=== PATIENT | female | born 1940 | race Caucasian/White ===

== ENCOUNTER 2016-06-14 20:40 | Inpatient (IN) ==
[2016-06-14 21:09] LABS: Hematocrit 43.7 % (35.3-44.9); Hemoglobin 14.4 g/dL (11.5-15.4); Mean Corpuscular Hemoglobin 30.6 pg (28.0-33.3); Mean Platelet Volume 11.7 fL (9.4-12.4); Platelet Count 127 K/mcL (140-400); Red Cell Distribution Width 15.3 % (11.5-14.5)
--- NOTE | 2016-06-14 21:13 | Emergency Department Note ---
Disposition Clinical Impression: Pneumonia Respiratory failure Qualifiers: Chronicity: acute on chronic Respiratory failure complication: hypoxia and hypercapnia Qualified Code(s): J96.21 - Acute and chronic respiratory failure with hypoxia Disposition: Admitted As Inpatient Condition: Critical Altered Mental Status HPI - General Chief Complaint: ED Overdose Stated Complaint: unresponsive Time Seen by Provider: 06/14/16 20:52 Source: EMS Limitations: altered mental status Nursing Notes Reviewed: Yes Vital Signs Reviewed: Yes - History of Present Illness HPI Narrative: 75-year-old female with a history of head and neck cancer status post chemotherapy and radiation who is fed through a feeding tube presents to the emergency department after being found altered at home. She lives with her daughter and her daughter reports the patient sleeping all day and being very tired. Just prior to arrival she went to wake her up and the patient was unresponsive. She has had pneumonia and what sounds like aspiration the past. She strictly fed through a feeding tube but does drink coffee daily. I spoke with the daughter and her son Anthony who is the POA who states the patient never wanted to be intubated or put on a ventilator. They are unsure about CPR. Patient is responding to pain but does not open her eyes or say any words. Initially she is borderline hypotensive with a systolic blood pressure around 100. Her oxygen saturation was 83% but improved to about 90% with a nonrebreather. She has coarse breath sounds bilaterally. Anthony, her POA is going to bring in her paperwork regarding CODE STATUS but they are adamant she does not want to be intubated. - Related Data Home Medications Medication Instructions Recorded Confirmed Albuterol Sulfate [Proair Hfa] 1 puff IH 4-6XD PRN 06/15/16 06/15/16 Alprazolam [Xanax 0.5 MG Tablet] 0.5 mg PO TID PRN 06/15/16 06/15/16 Aspirin [Lo-Dose Aspirin EC] 81 mg GTUBE DAILY 06/15/16 06/15/16 Atorvastatin [Lipitor] 10 mg PO HS 06/15/16 06/15/16 Budesonide/Formoterol 160/4.5 2 puff IH BIDR 06/15/16 06/15/16 [Symbicort 160/4.5] Gabapentin 250 mg GTUBE TID 06/15/16 06/15/16 Ipratropium/Albuterol Neb [Duoneb] 3 ml IH Q6HR 06/15/16 06/15/16 Oxycodone HCl/Acetaminophen 1 each PO Q8HR 06/15/16 06/15/16 [Percocet 7.5-325 mg Tablet] Allergies Allergy/AdvReac Type Severity Reaction Status Date / Time No Known Allergies Allergy Verified 06/14/16 21:04 Limitations: ROS unobtainable due to patients medical condition Past Medical History - Past Medical History Medical history: Reports: cancer - Social History Smoking Status: Unknown if ever smoked Physical Exam General: Cachectic, unresponsive chronically ill-appearing patient Cardiovascular: Regular rate and rhythm. S1, S2. No murmurs, rubs or gallops. Respiratory: Coarse breath sounds bilaterally. Breathing spontaneously with a respiratory rate around 15. No wheezing. Abdomen: Soft, no rebound or rigidity. As a feeding tube in place without signs of infection or leak Eyes: Pupils are 3 mm bilaterally and reactive to light. She has a corneal reflex bilaterally. HENT: No signs of head injury. No emesis in the mouth or throat. Neuro: No facial asymmetry. Withdraws to pain in 4 extremities. Eyes do not open to pain. She says no words and makes no sounds. GCS 6 Musculoskeletal: No lower extremity edema or signs of injury. Skin: No lesions. No diaphoresis. Normal turgor. Normal color - General Limitations: altered mental status General appearance: lethargic Course Course Narrative: Presents with altered mental status. Initial GCS 6. She was hypoxic in the 80s and borderline hypotensive. Her blood glucose was in the 70s and she was given a liter of D5 half normal. Her EKG showed no acute ischemic changes. She had coarse breath sounds and some respiratory distress on exam. Chest x- ray shows right hilar pneumonia. My concern was aspiration because she is chronically tube fed, not supposed to have PO but she does drink coffee daily. Oxygenation improved with nonrebreather to around 90% but then began going back down into the mid 80s. We placed BiPAP and her O2 saturation has been stable around 92%. She has good respirations. Family are all at adamant and agreed that she would never want intubation or to be on a ventilator. As far as CPR goes I told them CPR would likely not be beneficial if she wanted be intubated but they are trying to find her CODE STATUS paperwork. Labs reveal a leukopenia , mild renal insufficiency and hypoglycemia. We started her on Levaquin and Zosyn. We will admit her on the BiPAP. I discussed with the on-call hospitalist, Dr. Velázquez who accepts for admission, no further orders at this time Vital Signs Temperature 0 F L 06/14/16 20:41 Pulse Rate 99 06/14/16 20:41 Respiratory Rate 24 06/14/16 20:41 Blood Pressure 98/64 06/14/16 20:41 O2 Sat by Pulse Oximetry 86 L 06/14/16 20:41 Temperature 97.7 F 06/15/16 03:49 Pulse Rate 90 06/15/16 03:49 Respiratory Rate 22 06/15/16 05:08 Blood Pressure 97/61 06/15/16 03:49 O2 Sat by Pulse Oximetry 96 06/15/16 05:08 Oxygen Delivery Oxygen Delivery Bipap Altered Mental Status - Lab Data Result diagrams: 06/15/16 04:11 06/15/16 04:11 Lab Results 06/14/16 06/14/16 06/14/16 Range/Units 20:43 20:58 20:58 WBC 2.1 L (4.3-11.1) K/mcL RBC 4.70 (3.82-4.97) M/mcL Hgb 14.4 (11.5-15.4) g/dL Hct 43.7 (35.3-44.9) % MCV 93.0 (83.0-100.0) fL MCH 30.6 (28.0-33.3) pg MCHC 33.0 (31.6-35.5) g/dL RDW 15.3 H (11.5-14.5) % Plt Count 127 L (140-400) K/mcL MPV 11.7 (9.4-12.4) fL Seg Neutrophils % 6.0 % Band Neutrophils % 4.0 (0-4) % Lymphocytes % 60.0 % Monocytes % 22.0 % Metamyelocytes % 4.0 H (0) % Myelocytes % 4.0 H (0) % Neutrophils # 0.2 L (1.6-8.9) K/mcL Lymphocytes # 1.3 (0.6-4.6) K/mcL Monocytes # 0.5 (0.0-1.3) K/mcL ABG pH (7.32-7.45) pH Units ABG pCO2 (35-45) mmHg ABG pO2 (85-104) mmHg ABG HCO3 (21-27) mEQ/L ABG Total CO2 (20-26) mEq/L ABG O2 Saturation (95-98) % ABG Base Excess (-2.0 to 3.0) mEq/L Blood Gas Modality Inspired O2 % Sodium 139 (136-145) mEq/L Potassium 4.0 (3.5-4.5) mEq/L Chloride 101 (98-109) mEq/L Carbon Dioxide 26 (19-29) mEq/L BUN 25 H (7-20) mg/dL Creatinine 1.53 H (0.57-1.11) mg/dL Est GFR ( Amer) 40 L (> 60) Est GFR (Non-Af Amer) 33 L (> 60) BUN/Creatinine Ratio 16 (6-26) Glucose 61 L (70-99) mg/dL POC Glucose 70 (58-89) Calculated Osmolality 290 (280-300) Lactic Acid (0.5-2.2) mmol/L Calcium 9.7 (8.6-10.8) mg/dL Total Bilirubin 0.6 (0.2-1.2) mg/dL Direct Bilirubin 0.2 (0.0-0.5) mg/dL Indirect Bilirubin 0.4 (0.0-1.2) mg/dL AST 45 H (5-34) Units/L ALT 35 (0-55) Units/L Alkaline Phosphatase 51 (38-126) Units/L Serum Total Protein 6.6 (6.0-8.3) g/dL Albumin 3.2 L (3.5-5.0) g/dL Globulin 3.4 (2.4-3.5) g/dL Albumin/Globulin Ratio 0.9 L (1.1-2.2) Urine Color (Yellow) Urine Clarity (Clear) Urine pH (5.0-8.0) pH Units Ur Specific Council (1.010-1.025) Urine Protein (Neg-Trace) mg/dL Urine Glucose (UA) (Normal) mg/dL Urine Ketones (Negative) mg/dL Urine Blood (Negative) Urine Nitrite (Negative) Urine Bilirubin (Negative) Urine Urobilinogen (Normal) mg/dL Ur Leukocyte Esterase (Negative) Urine Microscopic RBC (0-3) per hpf Urine Microscopic WBC (0-3) per hpf Ur Squamous Epith Cells (None-Few) per lpf Urine Bacteria (None-Few) per hpf Hyaline Casts (None-Few) per lpf Ur Culture Indicated? (NO) Urine Opiates Screen (Apzxai=909) ng/mL Ur Barbiturates Screen (Yysoqk=608) ng/mL Ur Phencyclidine Scrn (Cutoff=25) ng/mL Ur Amphetamines Screen (Qcxinb=5854) ng/mL U Benzodiazepines Scrn (Eurmjr=884) ng/mL Urine Cocaine Screen (Cutoff= 300) ng/mL U Marijuana (THC) Screen (Cutoff = 50) ng/mL 06/14/16 06/14/16 06/14/16 Range/Units 20:58 21:56 22:18 WBC (4.3-11.1) K/mcL RBC (3.82-4.97) M/mcL Hgb (11.5-15.4) g/dL Hct (35.3-44.9) % MCV (83.0-100.0) fL MCH (28.0-33.3) pg MCHC (31.6-35.5) g/dL RDW (11.5-14.5) % Plt Count (140-400) K/mcL MPV (9.4-12.4) fL Seg Neutrophils % % Band Neutrophils % (0-4) % Lymphocytes % % Monocytes % % Metamyelocytes % (0) % Myelocytes % (0) % Neutrophils # (1.6-8.9) K/mcL Lymphocytes # (0.6-4.6) K/mcL Monocytes # (0.0-1.3) K/mcL ABG pH 7.39 (7.32-7.45) pH Units ABG pCO2 53 H (35-45) mmHg ABG pO2 53 L (85-104) mmHg ABG HCO3 32.1 H (21-27) mEQ/L ABG Total CO2 33.7 H (20-26) mEq/L ABG O2 Saturation 87 L (95-98) % ABG Base Excess 5.7 H (-2.0 to 3.0) mEq/L Blood Gas Modality NRB Inspired O2 100 % Sodium (136-145) mEq/L Potassium (3.5-4.5) mEq/L Chloride (98-109) mEq/L Carbon Dioxide (19-29) mEq/L BUN (7-20) mg/dL Creatinine (0.57-1.11) mg/dL Est GFR ( Amer) (> 60) Est GFR (Non-Af Amer) (> 60) BUN/Creatinine Ratio (6-26) Glucose (70-99) mg/dL POC Glucose 101 H (58-89) Calculated Osmolality (280-300) Lactic Acid 2.9 H (0.5-2.2) mmol/L Calcium (8.6-10.8) mg/dL Total Bilirubin (0.2-1.2) mg/dL Direct Bilirubin (0.0-0.5) mg/dL Indirect Bilirubin (0.0-1.2) mg/dL AST (5-34) Units/L ALT (0-55) Units/L Alkaline Phosphatase (38-126) Units/L Serum Total Protein (6.0-8.3) g/dL Albumin (3.5-5.0) g/dL Globulin (2.4-3.5) g/dL Albumin/Globulin Ratio (1.1-2.2) Urine Color (Yellow) Urine Clarity (Clear) Urine pH (5.0-8.0) pH Units Ur Specific Council (1.010-1.025) Urine Protein (Neg-Trace) mg/dL Urine Glucose (UA) (Normal) mg/dL Urine Ketones (Negative) mg/dL Urine Blood (Negative) Urine Nitrite (Negative) Urine Bilirubin (Negative) Urine Urobilinogen (Normal) mg/dL Ur Leukocyte Esterase (Negative) Urine Microscopic RBC (0-3) per hpf Urine Microscopic WBC (0-3) per hpf Ur Squamous Epith Cells (None-Few) per lpf Urine Bacteria (None-Few) per hpf Hyaline Casts (None-Few) per lpf Ur Culture Indicated? (NO) Urine Opiates Screen (Lhstcj=787) ng/mL Ur Barbiturates Screen (Ulabla=368) ng/mL Ur Phencyclidine Scrn (Cutoff=25) ng/mL Ur Amphetamines Screen (Ixhfxb=6110) ng/mL U Benzodiazepines Scrn (Tikdrf=707) ng/mL Urine Cocaine Screen (Cutoff= 300) ng/mL U Marijuana (THC) Screen (Cutoff = 50) ng/mL 06/15/16 06/15/16 Range/Units 00:04 00:04 WBC (4.3-11.1) K/mcL RBC (3.82-4.97) M/mcL Hgb (11.5-15.4) g/dL Hct (35.3-44.9) % MCV (83.0-100.0) fL MCH (28.0-33.3) pg MCHC (31.6-35.5) g/dL RDW (11.5-14.5) % Plt Count (140-400) K/mcL MPV (9.4-12.4) fL Seg Neutrophils % % Band Neutrophils % (0-4) % Lymphocytes % % Monocytes % % Metamyelocytes % (0) % Myelocytes % (0) % Neutrophils # (1.6-8.9) K/mcL Lymphocytes # (0.6-4.6) K/mcL Monocytes # (0.0-1.3) K/mcL ABG pH (7.32-7.45) pH Units ABG pCO2 (35-45) mmHg ABG pO2 (85-104) mmHg ABG HCO3 (21-27) mEQ/L ABG Total CO2 (20-26) mEq/L ABG O2 Saturation (95-98) % ABG Base Excess (-2.0 to 3.0) mEq/L Blood Gas Modality Inspired O2 % Sodium (136-145) mEq/L Potassium (3.5-4.5) mEq/L Chloride (98-109) mEq/L Carbon Dioxide (19-29) mEq/L BUN (7-20) mg/dL Creatinine (0.57-1.11) mg/dL Est GFR ( Amer) (> 60) Est GFR (Non-Af Amer) (> 60) BUN/Creatinine Ratio (6-26) Glucose (70-99) mg/dL POC Glucose (58-89) Calculated Osmolality (280-300) Lactic Acid (0.5-2.2) mmol/L Calcium (8.6-10.8) mg/dL Total Bilirubin (0.2-1.2) mg/dL Direct Bilirubin (0.0-0.5) mg/dL Indirect Bilirubin (0.0-1.2) mg/dL AST (5-34) Units/L ALT (0-55) Units/L Alkaline Phosphatase (38-126) Units/L Serum Total Protein (6.0-8.3) g/dL Albumin (3.5-5.0) g/dL Globulin (2.4-3.5) g/dL Albumin/Globulin Ratio (1.1-2.2) Urine Color Yellow (Yellow) Urine Clarity Clear (Clear) Urine pH 7.0 (5.0-8.0) pH Units Ur Specific Council 1.011 (1.010-1.025) Urine Protein 30 H (Neg-Trace) mg/dL Urine Glucose (UA) Normal (Normal) mg/dL Urine Ketones Negative (Negative) mg/dL Urine Blood Small H (Negative) Urine Nitrite Negative (Negative) Urine Bilirubin Negative (Negative) Urine Urobilinogen Normal (Normal) mg/dL Ur Leukocyte Esterase Negative (Negative) Urine Microscopic RBC 3-5 H (0-3) per hpf Urine Microscopic WBC 0-3 (0-3) per hpf Ur Squamous Epith Cells Many H (None-Few) per lpf Urine Bacteria None Seen (None-Few) per hpf Hyaline Casts None Seen (None-Few) per lpf Ur Culture Indicated? NO (NO) Urine Opiates Screen Positive H (Dzqrqg=689) ng/mL Ur Barbiturates Screen Negative (Rlwmze=565) ng/mL Ur Phencyclidine Scrn Negative (Cutoff=25) ng/mL Ur Amphetamines Screen Negative (Adsanl=7668) ng/mL U Benzodiazepines Scrn Positive H (Uowzca=592) ng/mL Urine Cocaine Screen Negative (Cutoff= 300) ng/mL U Marijuana (THC) Screen Negative (Cutoff = 50) ng/mL TPA Checklist - LKW: 3-4.5 hrs Add. Contraindications Patient/family understanding: The patient/family members have been counseled and understood the risk, benefit , and alternatives of treatment. Critical Care Time Critical Care Time: Yes Total Critical Care Time: 60 Attestation: Critical care performed: Time is exclusive of separately billable procedures. Time includes: direct patient care, patient reassessment, coordination of patient care, interpretation of data (laboratory data, radiology data, and respiratory data), review of patient's medical records, medical consultation and documentation of patient care. Procedures included in critical care time: Procedures excluded from critical care time: Attestation Statement - Attestation Attestation: I, Ravinder Trivedi MD, personally performed a history and physical exam of the patient and discussed their management with the resident. I reviewed the resident's note and agree with the documented findings, medical decision making , and plan of care. 75-year-old female presents to the emergency department by ambulance for being unresponsive all day today. Family reports she is normally awake and alert. She was fine yesterday and went to bed last night. Daughter reports that this morning they could not wake her up and they thought she just wanted to sleep and so they left her alone. She slept all day and did not wake up or respond. They got worried this evening and called the ambulance. EMS reports her oxygen saturation on arrival was 68%. 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 She currently has a G-tube. Family reports patient does not want to be intubated. On examination patient is a cachectic elderly female who is unresponsive on arrival. No cyanosis or diaphoresis. Breath sounds are coarse and congested bilaterally. Heart regular rate and rhythm. Abdomen is soft with present bowel sounds. Chest x-ray shows a right perihilar pneumonia. Labs reviewed. Patient remained unresponsive here in the emergency department. She was placed on BiPAP. Cultures obtained and IV antibiotics initiated. Lactic acid 2.9. Head CT negative. The hospitalist, Dr. Velázquez, was consulted and accepted admission of the patient.
[2016-06-14 21:16] LABS: ABG Base Excess 5.7 mEq/L (-2.0 to 3.0); ABG HCO3 32.1 mEQ/L (21-27); ABG Oxygen Saturation 87 % (95-98); ABG PCO2 53 mmHg (35-45); ABG PH 7.39 pH Units (7.32-7.45); ABG PO2 53 mmHg (85-104); ABG TCO2 33.7 mEq/L (20-26); Blood Gas FiO2 100 %
[2016-06-14 21:23] LABS: Albumin 3.2 g/dL (3.5-5.0); Albumin/Globulin Ratio 0.9 (1.1-2.2); Bilirubin,Direct 0.2 mg/dL (0.0-0.5); Bilirubin,Indirect 0.4 mg/dL (0.0-1.2); Bilirubin,Total 0.6 mg/dL (0.2-1.2); Calcium 9.7 mg/dL (8.6-10.8); Globulin 3.4 g/dL (2.4-3.5); Total Protein 6.6 g/dL (6.0-8.3)
[2016-06-14] MEDS ORDERED: Piperacillin/Tazobactam 3.375 GM in D5% in Water (Mini-Bag+) 100 ML IVPB ONE (21:31)
[2016-06-14 21:32] LABS: Lymphocytes # 1.3 K/mcL (0.6-4.6); Monocytes # 0.5 K/mcL (0.0-1.3); Neutrophils # 0.2 K/mcL (1.6-8.9)
[2016-06-14] MEDS ORDERED: Levofloxacin 750 MG/150 ML 750 MG/150 ML BAG IVPB ONE (21:32)
[2016-06-14] MEDS ORDERED: 0.9 % Sodium Chloride 1,000 ML IV ONE (21:33)
[2016-06-14] MEDS ORDERED: D5% in 0.45% NACL 1,000 ML IVC SCH (21:45)
[2016-06-15 00:13] LABS: Bilirubin,Urine Negative (Negative); Blood,Urine Small (Negative); Clarity,Urine Clear (Clear); Color,Urine Yellow (Yellow); Glucose,Urine (UA) Normal (Normal); Ketones,Urine Negative (Negative); Leukocyte Esterase,Urine Negative (Negative); Nitrite,Urine Negative (Negative); Protein,Urine 30 mg/dL (Neg-Trace); Specific Gravity,Urine 1.011 (1.010-1.025); Urobilinogen,Urine Normal (Normal)
[2016-06-15 00:14] LABS: Bacteria,Urine None Seen per hpf (None-Few); Hyaline Casts,Urine None Seen per lpf (None-Few); Squamous Epithelial Cell,Urine Many per lpf (None-Few); WBC,Urine 0-3 per hpf (0-3)
[2016-06-15 00:45] LABS: Amphetamine Screen,Urine Negative ng/mL (Cutoff=1000); Barbiturate Screen,Urine Negative ng/mL (Cutoff=200); Benzodiazepines Screen,Urine Positive ng/mL (Cutoff=200); Cannabinoid Screen,Urine Negative ng/mL (Cutoff = 50); Cocaine Screen,Urine Negative ng/mL (Cutoff= 300); Opiate Screen,Urine Positive ng/mL (Cutoff=300); Phencyclidine Screen,Urine Negative ng/mL (Cutoff=25)
[2016-06-15] MEDS ORDERED: Acetaminophen 650 MG RECTAL SUPP RC PRN (01:01)
[2016-06-15] MEDS ORDERED: Naloxone 0.4 MG/ML INJ IVP PRN (01:01)
[2016-06-15] MEDS ORDERED: Ondansetron 4 MG/2 ML VIAL IVP PRN (01:01)
[2016-06-15] MEDS ORDERED: *HR* Morphine 2 MG/ML SYRINGE IVP PRN ×2 (01:01→09:45)
--- NOTE | 2016-06-15 01:29 | Internal Med History&Physical ---
<Janett Lopez - Last Filed: 06/15/16 03:33> Date of Encounter: 06/15/16 Time of Encounter: 01:20 Assessment and Plan (1) Aspiration pneumonia Current visit: Yes Status: Acute Patient found unresponsive. CXR showed a right parahilar pneumonia. This is likely secondary to aspiration - patient has g-tube dependent dysphagia but does drink coffee every day. Patient has no recent hospital stays. Will treat with antibiotics. 1. Continue zosyn 2. Supplemental oxygen/BiPAP - wean as tolerated 3. Sputum culture 4. Follow up blood cultures Qualifiers: Aspiration pneumonia type: unspecified Laterality: right Lung location: unspecified part of lung Qualified Code(s): J69.0 - Pneumonitis due to inhalation of food and vomit (2) Sepsis Current visit: Yes Status: Acute Patient with tachypnea, leukopenia and a probably source - pneumonia. Will get cultures and treat infection with antibiotics. Will trend lactate. Will provide supportive care. 1. Blood cultures pending 2. Sputum culture 3. Urine culture 4. Continue antibiotics 5. Trend lactate 6. Monitor vitals and provide supportive care Qualifiers: Sepsis type: sepsis due to unspecified organism Qualified Code(s): A41.9 - Sepsis, unspecified organism (3) Hypotension Current visit: Yes Status: Acute Patient with hypotension responsive to fluids. Patient received 1L normal saline and 1L D5 1/2 normal in the ED. Pressures improved with fluids. Will continue IV fluids at 125ml/hr and monitor blood pressure and urine output. 1. Monitor blood pressure 2. Continue fluids 3. Pratt, monitor urine output. Qualifiers: Hypotension type: unspecified hypotension type Qualified Code(s): I95.9 - Hypotension, unspecified (4) Respiratory failure Current visit: Yes Status: Acute Patient with acute respiratory failure on chronic respiratory insufficiency. She is requiring BiPAP with high levels of FiO2 to maintain oxygenation saturation. ABG showed hypercapnia and hypoxia. Will continue BiPAP and wean as tolerated. Patient is DNI. 1. BiPAP Qualifiers: Chronicity: acute on chronic Respiratory failure complication: hypoxia and hypercapnia Qualified Code(s): J96.21 - Acute and chronic respiratory failure with hypoxia; J96.22 - Acute and chronic respiratory failure with hypercapnia (5) COPD (chronic obstructive pulmonary disease) Current visit: Yes Status: Acute Patient with COPD likely contributing to her acute respiratory failure. Will so scheduled duoneb treatments. If patient starts wheezing on exam, will consider steroids. Patient is DNI 1. Duonebs scheduled 2. Continue antibiotics 3. Continue BiPAP/supplemental oxygen as needed Qualifiers: COPD type: COPD with acute lower respiratory infection Qualified Code(s): J44.0 - Chronic obstructive pulmonary disease with acute lower respiratory infection (6) Acute kidney injury Current visit: Yes Status: Acute Patient with acute kidney injury. Creatinine 1.51. Patient has been seeing Dr. Thomas for hyponatremia however labs show normal kidney function prior. Kidney injury is likely secondary to sepsis and hypotension. Will continue IV fluids and avoid nephrotoxic drugs as possible. 1. Trend kidney function 2. IV fluids 3. Avoid nephrotoxic drugs. (7) DVT prophylaxis Current visit: Yes Status: Acute Heparin for DVT prophylaxis. Internal Medicine - H&P: HPI Chief complaint: Found unresponsive Admitted From: Emergency Dept History of present illness: Ms. 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 Patient brought in by EMS after being found unresponsive by her family. Patient lives with her daughter who reports that patient was baseline last night after when she went to bed. This morning, family tried to wake the patient up and she didn't respond. They thought that she was just very tired and let her sleep. Around 8pm this evening, they again tried to wake the patient and when she was unresponsive they called EMS. On arrival, patient had an initial GCS of 6, and was hypoxic and hypotensive. On arrival O2 saturation , was in the 80s but initially improved on nonrebreather. Patient became tired and desaturated so was placed on BIPAP. Patient was hypotensive around 100 systolic and given 1 L normal saline and 1L D5 1/2 because her initial blood glucose was 70. CXR showed a perihilar pneumonia and patient was started on levaquin and zosyn. Labs revealed WBC of 2.1, creatinine elevated to 1.53. ABG - pH 7.39/ pCO2 53/ pO2 53/ HCO3 32. On exam, patient was largely unresponsive, would occasionally open eyes or withdrawn from pain. Heart regular rate and rhythm. Lungs with diffuse rhonchi and course breath sounds, no wheezing. Abdomen soft with G tube in place. G-tube site is clean, dry and intact. No pedal edema noted. On discussion with daughter, she states that her mother does not want to be intubated and does not want anything done that would result in her being kept alive by machines. She reports that she has advanced directive/DNR paperwork and they will bring it to the hospital. Past Med Surg Social Fam HX - Past Medical History Medical history: cancer - Social History Smoking Status: Unknown if ever smoked Internal Medicine - H&P: Meds Albuterol Sulfate [Proair Hfa] 1 puff IH 4-6XD PRN 06/15/16 [History] Alprazolam [Xanax 0.5 MG Tablet] 0.5 mg PO TID PRN 06/15/16 [History] Aspirin [Lo-Dose Aspirin EC] 81 mg GTUBE DAILY 06/15/16 [History] Atorvastatin [Lipitor] 10 mg PO HS 06/15/16 [History] Budesonide/Formoterol 160/4.5 [Symbicort 160/4.5] 2 puff IH BIDR 06/15/16 [ History] Gabapentin 250 mg GTUBE TID 06/15/16 [History] Ipratropium/Albuterol Neb [Duoneb] 3 ml IH Q6HR 06/15/16 [History] Oxycodone HCl/Acetaminophen [Percocet 7.5-325 mg Tablet] 1 each PO Q8HR [History] Allergies No Known Allergies Allergy (Verified 06/14/16 21:04) ROS unobtainable: due to mental status All Systems PM: A 10-system review of systems was performed and is negative for pertinent findings except as documented above in the HPI. - Constitutional Vitals: Temp Pulse Resp BP Pulse Ox 98.2 F 86 20 113/68 84 L 06/14/16 20:49 06/15/16 00:13 06/15/16 00:45 06/15/16 00:45 06/15/16 00:13 General appearance: Present: A&O X 0 Exam: unresponsive - Head Head exam: Present: atraumatic, normal inspection, normocephalic - Respiratory Respiratory exam: Present: rhonchi, tachypnea Additional comments: she is protecting her airway - Cardiovascular Cardiovascular exam: Present: RRR - GI/Abdominal GI/Abdominal exam: Present: soft Additional comments: G-tube in place - Extremities Exam Extremities exam: Present: normal inspection. Absent: pedal edema - Neurological Exam Additional comments: Patient is adequately protecting her airway. - Expanded Neurological Exam Coma Scale Eye Opening: To Pain Coma Scale Motor Response: Withdraws to Pain Coma Scale Verbal Response: None Coma Scale Total: 7 Internal Med - H&P Results - Labs CBC & Chem 7: 06/14/16 20:58 06/14/16 20:58 Labs: Urine 06/15/16 Range/Units 00:04 Urine Color Yellow (Yellow) Urine Clarity Clear (Clear) Urine pH 7.0 (5.0-8.0) pH Units Ur Specific [place] 1.011 (1.010-1.025) Urine Protein 30 H (Neg-Trace) mg/dL Urine Glucose (UA) Normal (Normal) mg/dL - ABG Interpretation Interpretation: ABG interpreted by me ABG results: 7.39/ pCO2 53/ pO2 53/ HCO3 32 Additional comments: Hypoxic. Hypercapnic. Normal pH <AmedaBijan - Last Filed: 06/15/16 06:16> Date of Encounter: 06/15/16 Time of Encounter: 00:15 Assessment and Plan (1) Respiratory failure Current visit: Yes Status: Acute Qualifiers: Chronicity: acute on chronic Respiratory failure complication: hypoxia and hypercapnia Qualified Code(s): J96.21 - Acute and chronic respiratory failure with hypoxia; J96.22 - Acute and chronic respiratory failure with hypercapnia (2) Sepsis Current visit: Yes Status: Acute Qualifiers: Sepsis type: sepsis due to unspecified organism Qualified Code(s): A41.9 - Sepsis, unspecified organism (3) Aspiration pneumonia Current visit: Yes Status: Acute Qualifiers: Aspiration pneumonia type: unspecified Laterality: right Lung location: unspecified part of lung Qualified Code(s): J69.0 - Pneumonitis due to inhalation of food and vomit (4) Acute kidney injury Current visit: Yes Status: Acute (5) COPD (chronic obstructive pulmonary disease) Current visit: Yes Status: Acute Qualifiers: COPD type: COPD with acute lower respiratory infection Qualified Code(s): J44.0 - Chronic obstructive pulmonary disease with acute lower respiratory infection (6) Hypoglycemia Current visit: Yes Status: Acute Internal Medicine - H&P: HPI History of present illness: Ms. Arzate is a 75 year old female All Systems PM: A 10-system review of systems was performed and is negative for pertinent findings except as documented above in the HPI. - Constitutional Vitals: Temp Pulse Resp BP Pulse Ox 97.7 F 90 22 97/61 96 06/15/16 03:49 06/15/16 03:49 06/15/16 05:08 06/15/16 03:49 06/15/16 05:08 Internal Med - H&P Results - Labs CBC & Chem 7: 06/15/16 04:11 06/15/16 04:11 Labs: Short CBC 06/15/16 Range/Units 04:11 WBC 2.4 L (4.3-11.1) K/mcL Hgb 12.4 D (11.5-15.4) g/dL Hct 38.5 (35.3-44.9) % Plt Count 110 L (140-400) K/mcL Neutrophils # 1.4 L (1.6-8.9) K/mcL BMP 06/15/16 04:11 Sodium 136 Potassium 3.6 Chloride 107 Carbon Dioxide 22 BUN 26 H Creatinine 0.85 Glucose 39 L* Calcium 7.9 L D - Attending Attestation This document has been at least partially created by [employer] recognition technology by Dr. Velázquez. Errors in grammar, wording or other phrases may exist. If errors are found after the documentation is signed, they will be addressed individually in the addendum section of this document when appropriate. I examined this patient and my medical decision-making was reviewed with the Resident Physician. I agree with the documented history of present illness, review of systems, past medical, surgical social and family histories and examination findings, disposition and treatment plan as described above except to any changes set forth below. 75-year-old female patient with history of COPD, hypothyroidism, hyperlipidemia , coronary artery disease and malignant cancer of the tonsils status post chemotherapy and radiation was brought in by family members due to altered mental status. Patient receives nutrition through feeding tube but usually drinks coffee in the morning. She apparently had been at her baseline status the day prior but since yesterday morning she was less responsive and as the patient continued to remain this way the patient was brought to the ER. In the ER she was hypoxic and hypotensive on arrival. The patient apparently had DNI orders according to her daughter was present at the bedside and so the patient was not intubated. She is currently on BiPAP and poorly to questions but has minimal response to pain stimulation. On exam: Patient is somnolent and nonresponsive. Respiratory exam shows bilateral rhonchi and use of accessory muscles. Cardiovascular exam shows regular rhythm with normal S1 and S2. Abdomen is soft G- tube is in place. Severe sepsis: Patient with severe sepsis related to pneumonia. On IV antibiotics. Follow blood cultures. IV fluids. Monitor input and output. Follow lactate levels. Aspiration pneumonia: Patient has tried parahilar pneumonia on her x-ray. Given patient's high risk of aspiration, she most likely has aspiration pneumonia. On Zosyn. Acute hypoxic respiratory failure: Due to pneumonia and COPD. On BiPAP. Patient is DNI. CPR status unknown. Continue current management. Use albuterol and Atrovent nebs as needed. COPD: On bronchodilator nebs and O2 supplementation. At this time patient not having significant wheezing or signs of acute COPD exacerbation. We will hold off on steroids for now. Continue antibiotics and supplementation. Acute kidney injury: Likely due to sepsis. Will hydrate and follow renal function. Monitor input and output. Hypoglycemia: Patient is having low blood sugars. No history of diabetes. Likely due to poor nutrition and low glycogen stores. Will follow blood sugars closely. Place patient on dextrose solution intravenously. Goals of care: Patient is currently in critical condition with poor prognosis. Discussed with patient's daughter who was present at bedside in detail. Patient is known to be DNI and does not want intubation at all. Family is not sure about CPR. They are also okay with the patient receiving IV antibiotics and aggressive management for sepsis including central line placement and pressors. They understand that the prognosis is poor for the patient at this time.
[2016-06-15] MEDS: 0.9 % Sodium Chloride 1,000 ML IVC SCH ×4 (01:35→13:47)
[2016-06-15] MEDS ORDERED: Ipratropium/Albuterol Neb 3 ML ONE (01:41)
[2016-06-15] MEDS: Ipratropium/Albuterol Neb 3 ML IH SCH ×5 (01:44→23:01)
[2016-06-15 04:30] LABS: Hematocrit 38.5 % (35.3-44.9); Mean Corpuscular HGB Conc 32.2 g/dL (31.6-35.5); Mean Corpuscular Hemoglobin 30.2 pg (28.0-33.3); Mean Corpuscular Volume 93.9 fL (83.0-100.0); Mean Platelet Volume 12.2 fL (9.4-12.4); Platelet Count 110 K/mcL (140-400); Red Cell Distribution Width 15.1 % (11.5-14.5)
[2016-06-15 04:37] LABS: Hemoglobin 12.4 g/dL (11.5-15.4)
[2016-06-15 04:41] LABS: BUN/Creatinine Ratio 31 (6-26); Blood Urea Nitrogen 26 mg/dL (7-20); Carbon Dioxide 22 mEq/L (19-29); Chloride 107 mEq/L (98-109); Magnesium 2.1 mg/dL (1.6-2.6); Osmolality,Calculated 283 (280-300); Phosphorous 3.2 mg/dL (2.3-4.7); Potassium 3.6 mEq/L (3.5-4.5); Sodium 136 mEq/L (136-145); eGFR For African Americans > 60 (> 60); eGFR For Non-African Americans > 60 (> 60)
[2016-06-15 04:44] LABS: Calcium 7.9 mg/dL (8.6-10.8)
[2016-06-15 04:47] LABS: Glucose 39 mg/dL (70-99)
[2016-06-15] MEDS ORDERED: *HR* Dextrose 50 % in Water (Syg) 50 ML SYRINGE IVP ONE (05:00)
[2016-06-15] MEDS ORDERED: D5% in 0.45% NACL 1,000 ML IVC SCH (05:00)
[2016-06-15 05:28] LABS: Lymphocytes # 0.6 K/mcL (0.6-4.6); Monocytes # 0.3 K/mcL (0.0-1.3); Neutrophils # 1.4 K/mcL (1.6-8.9)
[2016-06-15 05:29] LABS: Large Platelets Present (Not Present); Platelet Estimate Slight Decrease (Normal)
[2016-06-15] MEDS ORDERED: *HR* Heparin 5,000 UNIT/ML VIAL SQ SCH (06:00)
[2016-06-15] MEDS: Piperacillin/Tazobactam 3.375 GM in D5% in Water (Mini-Bag+) 100 ML IVPB SCH ×2 (06:15→18:16)
[2016-06-15] MEDS: Vancomycin 750 MG in D5% in Water 250 ML IVPB SCH (08:48)
--- NOTE | 2016-06-15 09:49 | Internal Med Progress Note ---
Date of Encounter: 06/15/16 Time of Encounter: 09:46 - Assessment and plan (1) Sepsis Current Visit: Yes Status: Acute Assessment and plan: Secondary to Aspiration PNA Lactic acidosis resolved Will continue Zosyn and Added Vancomycin given the current bandemia f/u blood cultures continue IV fluids NPO at this time f/u speech therapy eval Qualifiers: Sepsis type: sepsis due to unspecified organism Qualified Code(s): A41.9 - Sepsis, unspecified organism (2) Aspiration pneumonia Current Visit: Yes Status: Acute Assessment and plan: Plan as listed above Qualifiers: Aspiration pneumonia type: unspecified Laterality: right Lung location: unspecified part of lung Qualified Code(s): J69.0 - Pneumonitis due to inhalation of food and vomit (3) Hypotension Current Visit: Yes Status: Acute Assessment and plan: Likely secondary to underlying infection Will continue IV fluids continue to closely monitor Qualifiers: Hypotension type: unspecified hypotension type Qualified Code(s): I95.9 - Hypotension, unspecified (4) Goals of care, counseling/discussion Current Visit: Yes Status: Acute Assessment and plan: Patient and family requested to explore palliative/hospice care options as patient does not want to be hospitalized Palliative care consultation requested Palliative care team to speak with the patient and family and establish goals of care of therapy including Lab draws, antibiotic support, bipap support. (5) Hypoglycemia Current Visit: Yes Status: Acute Assessment and plan: Noted to be severely hypoglycemic this morning REsume tube feedings continue to monitor accuchecks q4h (last FS: 156) (6) BRBPR (bright red blood per rectum) Current Visit: Yes Status: Acute Assessment and plan: As per family patient has history of this will closely monitor Repeat H&H this evening Patient and family does not want any further intervention at this time. (7) COPD (chronic obstructive pulmonary disease) Current Visit: Yes Status: Acute Assessment and plan: Chronic Continue bronchodilator support O2 supplementation as needed O2 sat goal: 89-92% Qualifiers: COPD type: COPD with acute lower respiratory infection Qualified Code(s): J44.0 - Chronic obstructive pulmonary disease with acute lower respiratory infection (8) History of cancer Current Visit: Yes Status: Chronic (9) DVT prophylaxis Current Visit: Yes Status: Acute Assessment and plan: IPCD - Subjective Interval history: Patient is a 75y/o female who is admitted for sepsis secondary to aspiration pneumonia. Patient seen and examined with family present at bedside. Patient is awake and oriented to self and family. As per family and POA (son) present at bedside, patient has history of underlying malignancy and does not want to undergo any advance treatment. She does not want to go to any [place] or hospitals however due to patient's unresponsive status the family brought the patient to the hospital. At this time the family is interesting in exploring Palliative/ Hospice care options. Patient was also noted to have BRBPR this morning as the nursing aids were cleaning the patient, as per family that has happened in the past and patient has does not want any further work up. - Constitutional Vitals: Temp Pulse Resp BP Pulse Ox 97.1 F L 97 18 87/55 96 06/15/16 08:30 06/15/16 08:30 06/15/16 08:30 06/15/16 08:30 06/15/16 05:08 General appearance: Present: A&O X 1, no acute distress, underweight - Head Head exam: Present: atraumatic, normocephalic - Eye Eye exam: Present: conjuntiva pink, sclera anicteric - Respiratory Respiratory exam: Absent: respiratory distress (coarse breath sounds bilaterally ) - Cardiovascular Cardiovascular exam: Present: RRR, +S1, +S2 - GI/Abdominal GI/Abdominal exam: Present: normal bowel sounds, soft. Absent: tenderness (G- tube in place) - Extremities Exam Extremities exam: Present: warm, radial pulses palpable and symetrical. Absent : calf tenderness, pedal edema - Neurological Exam Neurological exam: Present: alert Internal Medicine: Result - Labs CBC & Chem 7: 06/15/16 04:11 06/15/16 04:11 Labs: Short CBC 06/15/16 Range/Units 04:11 WBC 2.4 L (4.3-11.1) K/mcL Hgb 12.4 D (11.5-15.4) g/dL Hct 38.5 (35.3-44.9) % Plt Count 110 L (140-400) K/mcL Neutrophils # 1.4 L (1.6-8.9) K/mcL BMP 06/15/16 04:11 Sodium 136 Potassium 3.6 Chloride 107 Carbon Dioxide 22 BUN 26 H Creatinine 0.85 Glucose 39 L* Calcium 7.9 L D - ABG Interpretation ABG results: ABG ABG pH 7.39 pH Units (7.32-7.45) 06/14/16 20:58 ABG pCO2 53 mmHg (35-45) H 06/14/16 20:58 ABG pO2 53 mmHg (85-104) L 06/14/16 20:58 ABG O2 Saturation 87 % (95-98) L 06/14/16 20:58 Consult Discharge Plan - Plan Referrals: Hernán Edwards MD [Primary Care Provider] -
[2016-06-15] MEDS: Budesonide/Formoterol 160/4.5 MDI IH SCH ×2 (10:56→23:02)
--- NOTE | 2016-06-15 12:03 | Electrocardiograph Report ---
[place] [id number] Test Date: 2016-06-14 Pat Name: Lazara Arzate Department: 104 Room: 2N10 Gender: F Cargo Agent: : 1940 Requested By: Matias Eddy Order Number: [id number] Reading MD: Nora Zuñiga Measurements Intervals [place] Rate: 102 P: 66 SD: 187 QRS: -42 QRSD: 94 T: 48 QT: 317 QTc: 376 Interpretive Statements SINUS TACHYCARDIA MARKED LEFT AXIS DEVIATION SEPTAL MYOCARDIAL INFARCTION, OF INDETERMINATE AGE Electronically Signed On 06-15-2016 12:00:58 EST by Nora Zuñiga
--- NOTE | 2016-06-15 14:01 | Palliative - Consult Note ---
Date of Encounter: 06/15/16 Time of Encounter: 11:15 - Assessment and Plan (1) Dyspnea Current Visit: Yes Status: Acute Assessment and plan: The patient is on BiPAP at this time and appears to be tolerating it. Per family patient does wish aggressive treatment of the dyspnea short of intubation. Plan per hospitalist team. Qualifiers: Dyspnea type: unspecified Qualified Code(s): R06.00 - Dyspnea, unspecified (2) Acute kidney injury Current Visit: Yes Status: Acute Assessment and plan: Kidney function appears to be getting better with fluids. Plan per hospitalist team. (3) Aspiration pneumonia Current Visit: Yes Status: Acute Assessment and plan: The patient once again has aspiration pneumonitis. According to the family this happens approximately once a year. It is probably related to the fact the patient wishes to drink coffee. This is not going to change. She will continue to be at high risk for aspiration pneumonia due to this. Family understands this. He should not and family both wish to have aggressive treatment for this short of intubation. Qualifiers: Aspiration pneumonia type: unspecified Laterality: right Lung location: unspecified part of lung Qualified Code(s): J69.0 - Pneumonitis due to inhalation of food and vomit (4) Goals of care, counseling/discussion Current Visit: Yes Status: Acute Assessment and plan: Patient is currently DNR CCA DNI. This is per the patient's wishes according to HER-2 sons that are the medical [employer]. Ultimate goal is for the patient to get better and go home. The patient according to the family will not consider going to ECF for rehabilitation. Family is request for information revolved around home health care. This is what they desire for the patient to go home with. This was discussed, patient is not hospice ready at this time due to the fact that the patient would want to continue to be treated aggressively short of intubation or cardiac resuscitation. Amylase also not ready for hospice at this time. The patient and family wish to have aggressive care within the parameters already described. Her CODE STATUS is well established at her goal of care is to return home perhaps with home health care but not to go to ECF. Questions about asked and answered, palliative care will follow from a distance as this patient is seriously ill and our services may yet be required, however we will follow at a very long distance. I have discussed this With the treatment team and they are aware. (5) COPD (chronic obstructive pulmonary disease) Current Visit: Yes Status: Acute Assessment and plan: History of underlying COPD and this is probably going to her dyspnea along with the aspiration pneumonitis. Plan per hospitalist team. Qualifiers: COPD type: COPD with acute lower respiratory infection Qualified Code(s): J44.0 - Chronic obstructive pulmonary disease with acute lower respiratory infection Palliative-CN HPI - Data of Consult Patient: new to practice Requesting Physician: Reema Pacheco MD Primary Care Provider: Hernán Edwards MD - Consult Narrative Palliative Care/Comfort Measures: Palliative care Reason for consult: Family questions about hospice History of present illness: Ms. 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 He is normally active at home, is not able to walk due to a fractured hip however she is able to transfer from bed to wheelchair, wheel the wheelchair around speak easily and take care of most of her activities of daily living on her own. She was brought to the emergency department by EMS altered mental status after being found unresponsive by her family. It initial GCS of 6 was hypoxemic and hypotensive. Frieda inform the ED the patient was DNR and DNI and the patient was then placed on BiPAP. X-ray revealed a pneumonia. Patient was started on antibiotics. Since then the patient is treated for aspiration pneumonia and sepsis in fluids for hypotension and is on BiPAP for respiratory failure. Patient also has a history of COPD. Frieda had questions of the treatment team regarding home health care and hospice. Palliative care was therefore requested to meet with the family and discuss home care and hospice. See the assessment and plan. She is nonverbal at this time although is able to shake her head she denies any pain denies being particularly short of breath but she is on BiPAP at this time and she appears to be tolerating it well. History is from the medical record and from family during the family meeting. CC: Reema Pacheco MD Shortness of breath Past Med Surg Social Fam HX - Past Medical History Medical history: cancer - Social History Smoking Status: Unknown if ever smoked Medications and Allergies Albuterol Sulfate [Proair Hfa] 1 puff IH Q4-6H PRN 06/15/16 [History] Alprazolam [Xanax 0.5 MG Tablet] 0.5 mg GTUBE TID PRN 06/15/16 [History] Aspirin [Lo-Dose Aspirin EC] 81 mg GTUBE DAILY 06/15/16 [History] Atorvastatin [Lipitor] 10 mg GTUBE HS 06/15/16 [History] Budesonide/Formoterol 160/4.5 [Symbicort 160/4.5] 2 puff IH BID 06/15/16 [ History] Gabapentin 500 mg GTUBE TID 06/15/16 [History] Ipratropium/Albuterol Neb [Duoneb] 3 ml IH Q6HR 06/15/16 [History] Oxycodone HCl/Acetaminophen [Percocet 7.5-325 mg Tablet] 1 tab GTUBE Q8HR [History] Oxygen 2 l .ROUTE AD 06/15/16 [History] Allergies citalopram [From Celexa] Adverse Reaction (Verified 06/15/16 12:13) See Comments Hyponatremia ROS unobtainable: due to mental status Palliative Care-Exam - Constitutional Vitals: Temp Pulse Resp BP Pulse Ox 97.1 F L 98 14 87/55 96 06/15/16 08:30 06/15/16 11:14 06/15/16 12:17 06/15/16 08:30 06/15/16 12:17 General appearance: Present: no acute distress, thin - Head Head Exam: Present: atraumatic, normal inspection - Eye Eye exam: Present: normal appearance - ENT ENT exam: Present: mucous membranes moist (Difficult to assess due to BiPAP) - Neck Neck exam: Present: normal inspection - Respiratory Respiratory exam: Present: decreased breath sounds, rhonchi (Really more coarse breath sounds than true rhonchi) - Cardiovascular Cardiovascular exam: Present: RRR - GI/Abdominal Exam GI/Abdominal exam: Present: normal bowel sounds, soft - Catheter Type: Urethral (Pratt) - Extremities Exam Extremities exam: Present: normal inspection. Absent: pedal edema, tenderness - Neurological Exam Neurological exam: Present: altered - Psychiatric Psychiatric exam: Absent: agitated, anxious - Skin Skin exam: Present: dry, warm Internal Medicine - CN: Reslt - Labs CBC & Chem 7: 06/15/16 04:11 06/15/16 04:11 Labs: Short CBC 06/15/16 Range/Units 04:11 WBC 2.4 L (4.3-11.1) K/mcL Hgb 12.4 D (11.5-15.4) g/dL Hct 38.5 (35.3-44.9) % Plt Count 110 L (140-400) K/mcL Neutrophils # 1.4 L (1.6-8.9) K/mcL BMP 06/15/16 04:11 Sodium 136 Potassium 3.6 Chloride 107 Carbon Dioxide 22 BUN 26 H Creatinine 0.85 Glucose 39 L* Calcium 7.9 L D - ABG Interpretation ABG results: ABG ABG pH 7.39 pH Units (7.32-7.45) 06/14/16 20:58 ABG pCO2 53 mmHg (35-45) H 06/14/16 20:58 ABG pO2 53 mmHg (85-104) L 06/14/16 20:58 ABG O2 Saturation 87 % (95-98) L 06/14/16 20:58 Consult Discharge Plan - Plan Referrals: Hernán Edwards MD [Primary Care Provider] - (sent web request on 06-15-16 @ [id number]) Palliative Quality Palliative Quality: Screen for Code Status: Yes, Screen for Goals of Care: Yes, Screen for Pain: Yes, If Pain Regimen Started, Initiate Bowel Regimen: NA, Screen for Nausea/Vomitting: Yes
[2016-06-15] MEDS: *HR* OxyCODONE/APAP 7.5/325 TABLET PO PRN ×2 (14:04→14:10)
[2016-06-15] MEDS ORDERED: *HR* Dextrose 50 % in Water (Syg) 50 ML SYRINGE ONE (16:45)
[2016-06-15] MEDS ORDERED: D5% in 0.9% NACL 1,000 ML IVC ONE (16:52)
[2016-06-15] MEDS: D5% in 0.9% NACL 1,000 ML IVC SCH (18:16)
[2016-06-16] MEDS: D5% in 0.9% NACL 1,000 ML IVC SCH (02:27)
[2016-06-16 03:07] LABS: Hemoglobin 13.3 g/dL (11.5-15.4)
[2016-06-16 03:09] LABS: Hematocrit 42.3 % (35.3-44.9); Immature Platelets 14.8 % (1.1-6.1); Lymphocytes # 0.1 K/mcL (0.6-4.6); Mean Corpuscular HGB Conc 31.4 g/dL (31.6-35.5); Mean Corpuscular Volume 95.3 fL (83.0-100.0); Mean Platelet Volume 13.2 fL (9.4-12.4); Red Blood Count 4.44 M/mcL (3.82-4.97); Red Cell Distribution Width 14.7 % (11.5-14.5)
[2016-06-16 03:19] LABS: BUN/Creatinine Ratio 30 (6-26); Blood Urea Nitrogen 18 mg/dL (7-20); Calcium 7.8 mg/dL (8.6-10.8); Carbon Dioxide 22 mEq/L (19-29); Chloride 107 mEq/L (98-109); Glucose 93 mg/dL (70-99); Magnesium 1.9 mg/dL (1.6-2.6); Osmolality,Calculated 286 (280-300); Phosphorous 2.8 mg/dL (2.3-4.7); Potassium 3.5 mEq/L (3.5-4.5); Sodium 137 mEq/L (136-145); eGFR For African Americans > 60 (> 60); eGFR For Non-African Americans > 60 (> 60)
[2016-06-16 03:28] LABS: Platelet Count 74 K/mcL (140-400)
[2016-06-16 03:37] LABS: Large Platelets Present (Not Present); Monocytes # 0.1 K/mcL (0.0-1.3); Neutrophils # 2.1 K/mcL (1.6-8.9); Platelet Estimate Decreased (Normal)
[2016-06-16 03:38] LABS: Toxic Granulation Present (Not Present)
[2016-06-16] MEDS: Ipratropium/Albuterol Neb 3 ML IH SCH ×4 (04:59→22:33)
[2016-06-16] MEDS: Piperacillin/Tazobactam 3.375 GM in D5% in Water (Mini-Bag+) 100 ML IVPB SCH ×2 (06:04→17:25)
[2016-06-16] MEDS: Vancomycin 750 MG in D5% in Water 250 ML IVPB SCH (10:01)
[2016-06-16] MEDS: Budesonide/Formoterol 160/4.5 MDI IH SCH ×2 (10:37→22:33)
[2016-06-16] MEDS ORDERED: 0.9 % Sodium Chloride 1,000 ML ONE (11:50)
--- NOTE | 2016-06-16 11:56 | Internal Med Progress Note ---
Date of Encounter: 06/16/16 Time of Encounter: 11:53 - Assessment and plan (1) Sepsis Current Visit: Yes Status: Acute Assessment and plan: Secondary to Aspiration PNA Will continue Zosyn and Added Vancomycin given the current bandemia f/u blood cultures continue IV fluids NPO at this time speech therapy eval appreciated patient is to remain NPO and patient educated about the need to being compliant with this status after discharge. As per family, patient is going to continue to drink her coffee after discharge despite the outcome. Qualifiers: Sepsis type: sepsis due to unspecified organism Qualified Code(s): A41.9 - Sepsis, unspecified organism (2) Aspiration pneumonia Current Visit: Yes Status: Acute Assessment and plan: Plan as listed above Qualifiers: Aspiration pneumonia type: unspecified Laterality: right Lung location: unspecified part of lung Qualified Code(s): J69.0 - Pneumonitis due to inhalation of food and vomit (3) Hypotension Current Visit: Yes Status: Acute Assessment and plan: Likely secondary to underlying infection Resolved at this time Will continue IV fluids continue to closely monitor Qualifiers: Hypotension type: unspecified hypotension type Qualified Code(s): I95.9 - Hypotension, unspecified (4) Goals of care, counseling/discussion Current Visit: Yes Status: Acute Assessment and plan: Palliative care consultation appreciated Family not ready for hospice care at this time Just want the patient to remain current code status and get treated for the underlying infection Family expresses understanding of patient's current diagnosis and poor prognosis (5) Hypoglycemia Current Visit: Yes Status: Acute Assessment and plan: Improved Started Tube feedings will continue to monitor (6) BRBPR (bright red blood per rectum) Current Visit: Yes Status: Acute Assessment and plan: As per family patient has history of this will closely monitor H&H withing acceptable range no further episodes reported Patient and family does not want any further intervention at this time. (7) COPD (chronic obstructive pulmonary disease) Current Visit: Yes Status: Acute Assessment and plan: Chronic Continue bronchodilator support O2 supplementation as needed O2 sat goal: 89-92% Qualifiers: COPD type: COPD with acute lower respiratory infection Qualified Code(s): J44.0 - Chronic obstructive pulmonary disease with acute lower respiratory infection (8) History of cancer Current Visit: Yes Status: Chronic (9) DVT prophylaxis Current Visit: Yes Status: Acute Assessment and plan: IPCD - Subjective Interval history: Patient is a 75y/o female who is admitted for sepsis secondary to aspiration pneumonia. Patient seen and examined with family present at bedside. Patient is awake and oriented to self and family. Patient saturating well on bipap. No overnight issues reported. - Constitutional Vitals: Temp Pulse Resp BP Pulse Ox 97.5 F L 110 27 138/81 91 L 06/16/16 11:29 06/16/16 11:29 06/16/16 11:29 06/16/16 11:29 06/16/16 11:29 General appearance: Present: A&O X 1, no acute distress, underweight - Head Head exam: Present: atraumatic, normocephalic - Eye Eye exam: Present: normal appearance, conjuntiva pink, sclera anicteric - Respiratory Respiratory exam: Absent: respiratory distress, wheezes (coarse breath sounds ) - Cardiovascular Cardiovascular exam: Present: RRR, +S1, +S2 - GI/Abdominal GI/Abdominal exam: Present: normal bowel sounds, soft. Absent: distended, tenderness - Extremities Exam Extremities exam: Present: warm, radial pulses palpable and symetrical. Absent : calf tenderness, pedal edema - Neurological Exam Neurological exam: Present: alert Internal Medicine: Result - Labs CBC & Chem 7: 06/16/16 02:49 06/16/16 02:49 Labs: Short CBC 06/16/16 Range/Units 02:49 WBC 2.3 L (4.3-11.1) K/mcL Hgb 13.3 (11.5-15.4) g/dL Hct 42.3 (35.3-44.9) % Plt Count 74 L (140-400) K/mcL Neutrophils # 2.1 (1.6-8.9) K/mcL BMP 06/16/16 02:49 Sodium 137 Potassium 3.5 Chloride 107 Carbon Dioxide 22 BUN 18 Creatinine 0.60 Glucose 93 Calcium 7.8 L - ABG Interpretation ABG results: ABG ABG pH 7.39 pH Units (7.32-7.45) 06/14/16 20:58 ABG pCO2 53 mmHg (35-45) H 06/14/16 20:58 ABG pO2 53 mmHg (85-104) L 06/14/16 20:58 ABG O2 Saturation 87 % (95-98) L 06/14/16 20:58 Consult Discharge Plan - Plan Referrals: Hernán Edwards MD [Primary Care Provider] - 06/26/16 10:00 am ()
[2016-06-16] MEDS ORDERED: 0.9 % Sodium Chloride 1,000 ML IVC SCH (12:00)
[2016-06-16] MEDS: 0.9 % Sodium Chloride 1,000 ML IVC SCH (15:39)
[2016-06-17] MEDS: *HR* Morphine 2 MG/ML SYRINGE IVP PRN (01:08)
[2016-06-17] MEDS: 0.9 % Sodium Chloride 1,000 ML IVC SCH ×3 (01:12→20:44)
[2016-06-17] MEDS ORDERED: ALPRAZolam 0.5 MG TABLET GTUBE PRN ×2 (02:41→11:01)
[2016-06-17] MEDS: *HR* Metoprolol 5 MG/5 ML VIAL IVP PRN ×2 (02:51→16:24)
[2016-06-17 03:59] LABS: Hematocrit 32.5 % (35.3-44.9); Mean Corpuscular Volume 93.9 fL (83.0-100.0); Red Blood Count 3.46 M/mcL (3.82-4.97)
[2016-06-17 04:01] LABS: Hemoglobin 10.5 g/dL (11.5-15.4); Immature Platelets 13.6 % (1.1-6.1); Mean Corpuscular HGB Conc 32.3 g/dL (31.6-35.5); Mean Corpuscular Hemoglobin 30.3 pg (28.0-33.3); Mean Platelet Volume 13.1 fL (9.4-12.4)
[2016-06-17 04:19] LABS: Ionized Calcium 1.37 mmol/L (1.15-1.35)
[2016-06-17 04:24] LABS: BUN/Creatinine Ratio 27 (6-26); Blood Urea Nitrogen 14 mg/dL (7-20); Calcium 9.2 mg/dL (8.6-10.8); Carbon Dioxide 29 mEq/L (19-29); Chloride 110 mEq/L (98-109); Glucose 112 mg/dL (70-99); Magnesium 1.6 mg/dL (1.6-2.6); Osmolality,Calculated 301 (280-300); Phosphorous 1.9 mg/dL (2.3-4.7); Sodium 145 mEq/L (136-145); eGFR For African Americans > 60 (> 60); eGFR For Non-African Americans > 60 (> 60)
[2016-06-17 04:30] LABS: Albumin/Globulin Ratio 0.6 (1.1-2.2); Bilirubin,Direct 0.3 mg/dL (0.0-0.5); Bilirubin,Indirect 0.1 mg/dL (0.0-1.2); Bilirubin,Total 0.4 mg/dL (0.2-1.2); Globulin 3.2 g/dL (2.4-3.5); Total Protein 5.2 g/dL (6.0-8.3)
[2016-06-17 04:48] LABS: Platelet Count 62 K/mcL (140-400)
[2016-06-17 04:52] LABS: Lymphocytes # 0.8 K/mcL (0.6-4.6); Neutrophils # 5.9 K/mcL (1.6-8.9)
[2016-06-17 04:53] LABS: Burr Cells 1+ (Not Present); Platelet Estimate Decreased (Normal)
[2016-06-17] MEDS: Ipratropium/Albuterol Neb 3 ML IH SCH ×4 (04:53→22:45)
[2016-06-17] MEDS: Piperacillin/Tazobactam 3.375 GM in D5% in Water (Mini-Bag+) 100 ML IVPB SCH ×2 (05:14→19:15)
[2016-06-17] MEDS ORDERED: Potassium Phosphate 44 MEQ in 0.9 % Sodium Chloride 250 ML IVPB ONE (08:04)
[2016-06-17] MEDS: Budesonide/Formoterol 160/4.5 MDI IH SCH ×2 (08:51→22:45)
[2016-06-17 10:11] LABS: ABG Base Excess 6.2 mEq/L (-2.0 to 3.0); ABG HCO3 34.4 mEQ/L (21-27); ABG Oxygen Saturation 96 % (95-98); ABG PO2 91 mmHg (85-104); ABG TCO2 36.5 mEq/L (20-26)
[2016-06-17 10:18] LABS: ABG PCO2 70 mmHg (35-45)
[2016-06-17 10:19] LABS: Blood Gas FiO2 70 %
--- NOTE | 2016-06-17 10:54 | Internal Med Progress Note ---
Date of Encounter: 06/17/16 Time of Encounter: 10:15 - Assessment and plan (1) Acute respiratory failure with hypercapnia Current Visit: Yes Status: Acute Assessment and plan: Likely secondary to underlying lung disease exacerbated with aspiration pneumonia ABG appears to be acute on chronic respiratory acidosis with metabolic compensation BIPAP settings adjusted by RT and will closely monitor Serial ABG Bipap support hold all sedative agents (2) Sepsis Current Visit: Yes Status: Acute Assessment and plan: Secondary to Aspiration PNA Will continue Zosyn and Added Vancomycin given the current bandemia f/u blood cultures continue IV fluids speech therapy eval appreciated patient is to remain NPO and patient educated about the need to being compliant with this status after discharge. As per family, patient is going to continue to drink her coffee after discharge despite the outcome. Qualifiers: Sepsis type: sepsis due to unspecified organism Qualified Code(s): A41.9 - Sepsis, unspecified organism (3) Aspiration pneumonia Current Visit: Yes Status: Acute Assessment and plan: Plan as listed above Qualifiers: Aspiration pneumonia type: unspecified Laterality: right Lung location: unspecified part of lung Qualified Code(s): J69.0 - Pneumonitis due to inhalation of food and vomit (4) Hypotension Current Visit: Yes Status: Acute Assessment and plan: Likely secondary to underlying infection Resolved at this time Will continue IV fluids continue to closely monitor Qualifiers: Hypotension type: unspecified hypotension type Qualified Code(s): I95.9 - Hypotension, unspecified (5) Goals of care, counseling/discussion Current Visit: Yes Status: Acute Assessment and plan: Palliative care consultation appreciated Family not ready for hospice care at this time Just want the patient to remain current code status and get treated for the underlying infection Family expresses understanding of patient's current diagnosis and poor prognosis (6) Hypoglycemia Current Visit: Yes Status: Acute Assessment and plan: Resolved Started Tube feedings will continue to monitor (7) BRBPR (bright red blood per rectum) Current Visit: Yes Status: Acute Assessment and plan: As per family patient has history of this will closely monitor H&H withing acceptable range no further episodes reported Patient and family does not want any further intervention at this time. (8) COPD (chronic obstructive pulmonary disease) Current Visit: Yes Status: Acute Assessment and plan: Chronic Continue bronchodilator support O2 supplementation as needed O2 sat goal: 89-92% Qualifiers: COPD type: COPD with acute lower respiratory infection Qualified Code(s): J44.0 - Chronic obstructive pulmonary disease with acute lower respiratory infection (9) History of cancer Current Visit: Yes Status: Chronic (10) DVT prophylaxis Current Visit: Yes Status: Acute Assessment and plan: IPCD (11) Tachyarrhythmia Current Visit: Yes Status: Acute Assessment and plan: Tachycardia persists BP within acceptable range Will start Metoprolol 12.5mg PO q12h continue to monitor (12) Electrolyte abnormality Current Visit: Yes Status: Acute Assessment and plan: Hypokalemia and hypophosphatemia noted K and PHOS supplemented continue to monitor electrolytes and replace as needed - Subjective Interval history: Patient is a 75y/o female who is admitted for sepsis secondary to aspiration pneumonia. Patient seen and examined with family present at bedside. Pt more lethargic today, responsive to painful stimuli. STAT ABG done showing severe hypercapnia which is likely to cause the somnolent mental status. Noted to be tachycardic overnight requiring one time dose of Metoprol. Tachycardic at this time as well , will start Metoprolol 12.5mg PO BID. - Constitutional Vitals: Temp Pulse Resp BP Pulse Ox 97.6 F 106 20 143/75 97 06/17/16 07:40 06/17/16 07:40 06/17/16 08:52 06/17/16 07:40 06/17/16 08:52 General appearance: Present: A&O X 0, no acute distress, underweight - Head Head exam: Present: atraumatic, normocephalic - Respiratory Respiratory exam: Present: decreased breath sounds. Absent: respiratory distress, wheezes - Cardiovascular Cardiovascular exam: Present: +S1, +S2, tachycardia. Absent: diastolic murmur, gallop, rubs, systolic murmur - GI/Abdominal GI/Abdominal exam: Present: normal bowel sounds, soft. Absent: tenderness (G- tube in place) - Extremities Exam Extremities exam: Present: warm, radial pulses palpable and symetrical. Absent : calf tenderness Internal Medicine: Result - Labs CBC & Chem 7: 06/17/16 03:45 06/17/16 03:45 Labs: Short CBC 06/17/16 Range/Units 03:45 WBC 6.7 D (4.3-11.1) K/mcL Hgb 10.5 L D (11.5-15.4) g/dL Hct 32.5 L (35.3-44.9) % Plt Count 62 L (140-400) K/mcL Neutrophils # 5.9 (1.6-8.9) K/mcL BMP 06/17/16 03:45 Sodium 145 D Potassium 3.0 L Chloride 110 H Carbon Dioxide 29 BUN 14 Creatinine 0.51 L Glucose 112 H Calcium 9.2 D Liver Function 06/17/16 Range/Units 03:45 Total Bilirubin 0.4 (0.2-1.2) mg/dL Direct Bilirubin 0.3 (0.0-0.5) mg/dL AST 122 H (5-34) Units/L ALT 64 H (0-55) Units/L Alkaline Phosphatase 83 (38-126) Units/L Albumin 2.0 L D (3.5-5.0) g/dL - ABG Interpretation ABG results: ABG ABG pH 7.30 pH Units (7.32-7.45) L 06/17/16 10:02 ABG pCO2 70 mmHg (35-45) H* 06/17/16 10:02 ABG pO2 91 mmHg (85-104) 06/17/16 10:02 ABG O2 Saturation 96 % (95-98) 06/17/16 10:02 Consult Discharge Plan - Plan Referrals: Hernán Edwards MD [Primary Care Provider] - 06/26/16 10:00 am ()
[2016-06-17] MEDS: Aspirin Enteric Coated 81 MG Tablet PO SCH (12:17)
[2016-06-17] MEDS: Vancomycin 750 MG in D5% in Water 250 ML IVPB SCH (12:22)
[2016-06-17 13:18] LABS: ABG Base Excess 7.6 mEq/L (-2.0 to 3.0); ABG HCO3 33.9 mEQ/L (21-27); ABG Oxygen Saturation 94 % (95-98); ABG PCO2 56 mmHg (35-45); ABG PH 7.39 pH Units (7.32-7.45); ABG PO2 73 mmHg (85-104); ABG TCO2 35.6 mEq/L (20-26); Blood Gas FiO2 50 %
[2016-06-18] MEDS: *HR* Metoprolol 5 MG/5 ML VIAL IVP PRN (01:10)
[2016-06-18] MEDS: *HR* Morphine 2 MG/ML SYRINGE IVP PRN (03:29)
[2016-06-18] MEDS: Ipratropium/Albuterol Neb 3 ML IH SCH ×3 (03:54→17:06)
[2016-06-18 05:04] LABS: Eosinophils % 0.1 %; Hemoglobin 11.3 g/dL (11.5-15.4)
[2016-06-18 05:06] LABS: Basophils # 0.1 K/mcL (0.0-0.2); Basophils % 0.4 %; Hematocrit 34.4 % (35.3-44.9); Immature Granulocytes % 5.1 % (0-4); Immature Platelets 12.6 % (1.1-6.1); Lymphocytes # 0.5 K/mcL (0.6-4.6); Lymphocytes % 3.8 %; Mean Corpuscular HGB Conc 32.8 g/dL (31.6-35.5); Mean Corpuscular Hemoglobin 30.4 pg (28.0-33.3); Mean Corpuscular Volume 92.5 fL (83.0-100.0); Mean Platelet Volume 12.3 fL (9.4-12.4); Monocytes # 0.6 K/mcL (0.0-1.3); Monocytes % 4.6 %; Neutrophils # 11.7 K/mcL (1.6-8.9); Red Blood Count 3.72 M/mcL (3.82-4.97); Red Cell Distribution Width 15.3 % (11.5-14.5)
[2016-06-18 05:09] LABS: Platelet Count 62 K/mcL (140-400)
[2016-06-18 05:20] LABS: BUN/Creatinine Ratio 26 (6-26); Blood Urea Nitrogen 14 mg/dL (7-20); Calcium 10.2 mg/dL (8.6-10.8); Carbon Dioxide 31 mEq/L (19-29); Chloride 114 mEq/L (98-109); Glucose 104 mg/dL (70-99); Magnesium 1.5 mg/dL (1.6-2.6); Osmolality,Calculated 313 (280-300); Phosphorous 1.4 mg/dL (2.3-4.7); Potassium 2.7 mEq/L (3.5-4.5); Sodium 151 mEq/L (136-145); eGFR For African Americans > 60 (> 60); eGFR For Non-African Americans > 60 (> 60)
[2016-06-18] MEDS: Piperacillin/Tazobactam 3.375 GM in D5% in Water (Mini-Bag+) 100 ML IVPB SCH (05:36)
[2016-06-18 05:41] LABS: Platelet Estimate Decreased (Normal)
--- NOTE | 2016-06-18 07:33 | Electrocardiograph Report ---
[address] [place] [address] Test Date: 2016-06-17 Pat Name: Lazara Arzate Department: 110 Room: 2N10 Gender: F [employer]: : 1940 Requested By: Reema Pacheco Order Number: [id number] Reading MD: Maulik Donahue MD Measurements Intervals Carey Rate: 112 P: 55 ND: 163 QRS: -33 QRSD: 100 T: 41 QT: 318 QTc: 384 Interpretive Statements SINUS TACHYCARDIA MARKED LEFT AXIS DEVIATION SEPTAL MYOCARDIAL INFARCTION, OF INDETERMINATE AGE Electronically Signed On 06-18-2016 7:31:33 EST by Maulik Donahue MD
[2016-06-18] MEDS: 0.9 % Sodium Chloride 1,000 ML IVC SCH (07:41)
[2016-06-18] MEDS ORDERED: Potassium Chloride Elixir 20 MEQ/15 ML UDC GTUBE ONE (07:55)
[2016-06-18] MEDS ORDERED: Potassium Phosphate 44 MEQ in 0.9 % Sodium Chloride 250 ML IVPB ONE (07:55)
[2016-06-18] MEDS ORDERED: Magnesium Sulfate 1 GM in D5% in Water 100 ML IVPB ONE (07:57)
[2016-06-18 09:15] LABS: ABG Base Excess 12.6 mEq/L (-2.0 to 3.0); ABG HCO3 39.6 mEQ/L (21-27); ABG Oxygen Saturation 92 % (95-98); ABG PCO2 64 mmHg (35-45); ABG PO2 63 mmHg (85-104); ABG TCO2 41.6 mEq/L (20-26)
[2016-06-18 09:17] LABS: Blood Gas FiO2 60 %
[2016-06-18] MEDS: Vancomycin 750 MG in D5% in Water 250 ML IVPB SCH (09:17)
--- NOTE | 2016-06-18 09:18 | Palliative Progress Note ---
Date of Encounter: 06/18/16 Time of Encounter: 08:45 - Assessment and plan (1) Aspiration pneumonia Current Visit: Yes Status: Acute Assessment and plan: Being treated aggressively as per family request and patient goals. Per hospitalist team. As has already been noted by myself and by the hospitalist team the patient is finally discharged she will undoubtedly return to drinking her coffee continued to be at very high risk for aspiration pneumonitis. Qualifiers: Aspiration pneumonia type: unspecified Laterality: right Lung location: unspecified part of lung Qualified Code(s): J69.0 - Pneumonitis due to inhalation of food and vomit (2) Acute kidney injury Current Visit: Yes Status: Acute Assessment and plan: Markedly improved (3) COPD (chronic obstructive pulmonary disease) Current Visit: Yes Status: Acute Assessment and plan: Chronic condition, continue oxygen and bronchodilator support. She is tolerating BiPAP well at this time. Qualifiers: COPD type: COPD with acute lower respiratory infection Qualified Code(s): J44.0 - Chronic obstructive pulmonary disease with acute lower respiratory infection (4) Goals of care, counseling/discussion Current Visit: Yes Status: Acute Assessment and plan: Status established as DNR CCA, DNI. Ultimate goal is to return home. Per family the patient would not want to consider rehabilitation. At this time the palliative care team is noted that the patient is not doing that much better. Therefore we will continue to follow from a distance but not sign off in case seems necessary for us to become reengaged. (5) Dyspnea Current Visit: Yes Status: Acute Assessment and plan: Patient is tolerating BiPAP well, however is still requiring it. And per hospitalist team Qualifiers: Dyspnea type: unspecified Qualified Code(s): R06.00 - Dyspnea, unspecified - Time Spent With Patient Total time spent is greater than 50% in coordination of care (as documented) at patient's floor/unit and/or counseling patient: - Subjective Interval history: The patient is not responsive to verbal this morning. Pierced to be in no distress and is tolerating the mask well. - Constitutional Vitals: Abnormal lab results WBC 13.6 K/mcL (4.3-11.1) H D 06/18/16 04:30 RBC 3.72 M/mcL (3.82-4.97) L 06/18/16 04:30 Hgb 11.3 g/dL (11.5-15.4) L 06/18/16 04:30 Hct 34.4 % (35.3-44.9) L 06/18/16 04:30 RDW 15.3 % (11.5-14.5) H 06/18/16 04:30 Plt Count 62 K/mcL (140-400) L 06/18/16 04:30 Immature Gran % 5.1 % (0-4) H 06/18/16 04:30 Band Neutrophils % 6.0 % (0-4) H 06/17/16 03:45 Metamyelocytes % 4.0 % (0) H 06/16/16 02:49 Myelocytes % 4.0 % (0) H 06/14/16 20:58 Neutrophils # 11.7 K/mcL (1.6-8.9) H 06/18/16 04:30 Lymphocytes # 0.5 K/mcL (0.6-4.6) L 06/18/16 04:30 Toxic Granulation Present (Not Present) A 06/16/16 02:49 Platelet Estimate Decreased (Normal) L 06/18/16 04:30 Large Platelets Present (Not Present) A 06/16/16 02:49 Immature Plt Fraction 12.6 % (1.1-6.1) H 06/18/16 04:30 Naomi Cells 1+ (Not Present) A 06/17/16 03:45 ABG pCO2 56 mmHg (35-45) H 06/17/16 13:11 ABG pO2 73 mmHg (85-104) L 06/17/16 13:11 ABG HCO3 33.9 mEQ/L (21-27) H 06/17/16 13:11 ABG Total CO2 35.6 mEq/L (20-26) H 06/17/16 13:11 ABG O2 Saturation 94 % (95-98) L 06/17/16 13:11 ABG Base Excess 7.6 mEq/L (-2.0 to 3.0) H 06/17/16 13:11 Sodium 151 mEq/L (136-145) H 06/18/16 04:30 Potassium 2.7 mEq/L (3.5-4.5) L 06/18/16 04:30 Chloride 114 mEq/L (98-109) H 06/18/16 04:30 Carbon Dioxide 31 mEq/L (19-29) H 06/18/16 04:30 Creatinine 0.54 mg/dL (0.57-1.11) L 06/18/16 04:30 Glucose 104 mg/dL (70-99) H 06/18/16 04:30 POC Glucose 133 (58-89) H 06/17/16 23:28 Calculated Osmolality 313 (280-300) H 06/18/16 04:30 Ionized Calcium 1.37 mmol/L (1.15-1.35) H 06/17/16 03:45 Phosphorus 1.4 mg/dL (2.3-4.7) L 06/18/16 04:30 Magnesium 1.5 mg/dL (1.6-2.6) L 06/18/16 04:30 AST 122 Units/L (5-34) H 06/17/16 03:45 ALT 64 Units/L (0-55) H 06/17/16 03:45 Serum Total Protein 5.2 g/dL (6.0-8.3) L D 06/17/16 03:45 Albumin 2.0 g/dL (3.5-5.0) L D 06/17/16 03:45 Albumin/Globulin Ratio 0.6 (1.1-2.2) L 06/17/16 03:45 Urine Protein 30 mg/dL (Neg-Trace) H 06/15/16 00:04 Urine Blood Small (Negative) H 06/15/16 00:04 Urine Microscopic RBC 3-5 per hpf (0-3) H 06/15/16 00:04 Ur Squamous Epith Cells Many per lpf (None-Few) H 06/15/16 00:04 Vancomycin Trough 5.2 mcg/mL (10-20) L 06/18/16 07:45 Urine Opiates Screen Positive ng/mL (Dazcyi=297) H 06/15/16 00:04 U Benzodiazepines Scrn Positive ng/mL (Jihkkt=832) H 06/15/16 00:04 General appearance: Present: no acute distress - Head Head exam: Present: atraumatic, normal inspection - Eye Eye exam: Present: normal appearance - Respiratory Respiratory exam: Present: decreased breath sounds - Cardiovascular Cardiovascular exam: Present: RRR - GI/Abdominal GI/Abdominal exam: Present: normal bowel sounds, soft. Absent: tenderness (G- tube in place) - Extremities Exam Extremities exam: Present: normal inspection. Absent: pedal edema, tenderness - Neurological Exam Neurological exam: Present: altered - Psychiatric Psychiatric exam: Absent: agitated, anxious - Skin Skin exam: Present: dry, warm Palliative Quality Palliative Quality: Screen for Code Status: Yes, Screen for Goals of Care: Yes, Screen for Pain: Yes, If Pain Regimen Started, Initiate Bowel Regimen: NA, Screen for Nausea/Vomitting: Yes - Labs CBC & Chem 7: 06/18/16 04:30 06/18/16 04:30 Labs: Laboratory Results - last 24 hr 06/17/16 06/17/16 06/17/16 04:11 07:29 10:02 WBC RBC Hgb Hct MCV MCH MCHC RDW Plt Count MPV Immature Gran % Seg Neutrophils % Lymphocytes % Monocytes % Eosinophils % Basophils % Neutrophils # Lymphocytes # Monocytes # Eosinophils # Basophils # Platelet Estimate Immature Plt Fraction ABG pH 7.30 L ABG pCO2 70 H* ABG pO2 91 ABG HCO3 34.4 H ABG Total CO2 36.5 H ABG O2 Saturation 96 ABG Base Excess 6.2 H Blood Gas Modality ST/BIPAP Inspired O2 70 Sodium Potassium Chloride Carbon Dioxide BUN Creatinine Est GFR ( Amer) Est GFR (Non-Af Amer) BUN/Creatinine Ratio Glucose POC Glucose 117 H 125 H Calculated Osmolality Calcium Phosphorus Magnesium Vancomycin Trough 06/17/16 06/17/16 06/17/16 11:31 13:11 15:51 WBC RBC Hgb Hct MCV MCH MCHC RDW Plt Count MPV Immature Gran % Seg Neutrophils % Lymphocytes % Monocytes % Eosinophils % Basophils % Neutrophils # Lymphocytes # Monocytes # Eosinophils # Basophils # Platelet Estimate Immature Plt Fraction ABG pH 7.39 ABG pCO2 56 H ABG pO2 73 L ABG HCO3 33.9 H ABG Total CO2 35.6 H ABG O2 Saturation 94 L ABG Base Excess 7.6 H Blood Gas Modality BIPAP Inspired O2 50 Sodium Potassium Chloride Carbon Dioxide BUN Creatinine Est GFR ( Amer) Est GFR (Non-Af Amer) BUN/Creatinine Ratio Glucose POC Glucose 112 H 92 H Calculated Osmolality Calcium Phosphorus Magnesium Vancomycin Trough 06/17/16 06/17/16 06/18/16 19:58 23:28 04:30 WBC 13.6 H D RBC 3.72 L Hgb 11.3 L Hct 34.4 L MCV 92.5 MCH 30.4 MCHC 32.8 RDW 15.3 H Plt Count 62 L MPV 12.3 Immature Gran % 5.1 H Seg Neutrophils % 86.0 Lymphocytes % 3.8 Monocytes % 4.6 Eosinophils % 0.1 Basophils % 0.4 Neutrophils # 11.7 H Lymphocytes # 0.5 L Monocytes # 0.6 Eosinophils # 0.0 Basophils # 0.1 Platelet Estimate Decreased L Immature Plt Fraction 12.6 H ABG pH ABG pCO2 ABG pO2 ABG HCO3 ABG Total CO2 ABG O2 Saturation ABG Base Excess Blood Gas Modality Inspired O2 Sodium Potassium Chloride Carbon Dioxide BUN Creatinine Est GFR ( Amer) Est GFR (Non-Af Amer) BUN/Creatinine Ratio Glucose POC Glucose 111 H 133 H Calculated Osmolality Calcium Phosphorus Magnesium Vancomycin Trough 06/18/16 06/18/16 04:30 07:45 WBC RBC Hgb Hct MCV MCH MCHC RDW Plt Count MPV Immature Gran % Seg Neutrophils % Lymphocytes % Monocytes % Eosinophils % Basophils % Neutrophils # Lymphocytes # Monocytes # Eosinophils # Basophils # Platelet Estimate Immature Plt Fraction ABG pH ABG pCO2 ABG pO2 ABG HCO3 ABG Total CO2 ABG O2 Saturation ABG Base Excess Blood Gas Modality Inspired O2 Sodium 151 H Potassium 2.7 L Chloride 114 H Carbon Dioxide 31 H BUN 14 Creatinine 0.54 L Est GFR ( Amer) > 60 Est GFR (Non-Af Amer) > 60 BUN/Creatinine Ratio 26 Glucose 104 H POC Glucose Calculated Osmolality 313 H Calcium 10.2 Phosphorus 1.4 L Magnesium 1.5 L Vancomycin Trough 5.2 L - Impressions Impressions Chest X-Ray 06/18/16 07:59 IMPRESSION: Interval development of focal airspace in the left mid lung, concerning for pneumonia. Focal airspace disease in the right mid lung appears improved, although comparison is difficult given difference in positioning. Diffuse hazy opacities in a perihilar prominence is suggestive of pulmonary edema. Suspect right effusion as well. D/ / 06/18/2016 08:55:26 Miguel Angel Ayala MD / [email or web address] Interpreting Provider: Miguel Angel Ayala MD - ABG Interpretation ABG results: ABG ABG pH 7.39 pH Units (7.32-7.45) 06/17/16 13:11 ABG pCO2 56 mmHg (35-45) H 06/17/16 13:11 ABG pO2 73 mmHg (85-104) L 06/17/16 13:11 ABG O2 Saturation 94 % (95-98) L 06/17/16 13:11 Consult Discharge Plan - Plan Referrals: Hernán Edwards MD [Primary Care Provider] - 06/26/16 10:00 am ()
[2016-06-18] MEDS: Aspirin Enteric Coated 81 MG Tablet PO SCH (10:06)
--- NOTE | 2016-06-18 10:15 | Internal Med Progress Note ---
Date of Encounter: 06/18/16 Time of Encounter: 10:12 - Assessment and plan (1) Sepsis Current Visit: Yes Status: Acute Assessment and plan: Secondary to Aspiration PNA Will continue Zosyn and Vancomycin Vanco trough noted, pharmacy to adjust the dose accordingly Bandemia resolved and current WBC is reflective of that resolution f/u blood cultures continue IV fluids speech therapy eval appreciated patient is to remain NPO and patient educated about the need to being compliant with this status after discharge. As per family, patient is going to continue to drink her coffee after discharge despite the outcome. continue bipap support poor prognosis Qualifiers: Sepsis type: sepsis due to unspecified organism Qualified Code(s): A41.9 - Sepsis, unspecified organism (2) Aspiration pneumonia Current Visit: Yes Status: Acute Assessment and plan: Plan as listed above Qualifiers: Aspiration pneumonia type: unspecified Laterality: right Lung location: unspecified part of lung Qualified Code(s): J69.0 - Pneumonitis due to inhalation of food and vomit (3) COPD (chronic obstructive pulmonary disease) Current Visit: Yes Status: Acute Assessment and plan: Chronic Continue bronchodilator support O2 supplementation as needed O2 sat goal: 89-92% Qualifiers: COPD type: COPD with acute lower respiratory infection Qualified Code(s): J44.0 - Chronic obstructive pulmonary disease with acute lower respiratory infection (4) DVT prophylaxis Current Visit: Yes Status: Acute Assessment and plan: IPCD (5) Hypotension Current Visit: Yes Status: Acute Assessment and plan: REsolved started Metoprolol continue to monitor BP and HR no recurrent episodes of Afib reported. Qualifiers: Hypotension type: unspecified hypotension type Qualified Code(s): I95.9 - Hypotension, unspecified (6) Hypoglycemia Current Visit: Yes Status: Acute Assessment and plan: Resolved continue tube feedings (7) Goals of care, counseling/discussion Current Visit: Yes Status: Acute Assessment and plan: Palliative care consultation appreciated Family not ready for hospice care at this time Just want the patient to remain current code status and get treated for the underlying infection Family expresses understanding of patient's current diagnosis and poor prognosis (8) History of cancer Current Visit: Yes Status: Chronic (9) BRBPR (bright red blood per rectum) Current Visit: Yes Status: Acute Assessment and plan: As per family patient has history of this will closely monitor H&H withing acceptable range no further episodes reported Patient and family does not want any further intervention at this time. (10) Acute respiratory failure with hypercapnia Current Visit: Yes Status: Acute Assessment and plan: Likely secondary to underlying lung disease exacerbated with aspiration pneumonia ABG appears to be acute on chronic respiratory acidosis with metabolic compensation BIPAP settings adjusted by RT and will closely monitor Serial ABG Bipap support hold all sedative agents (11) Tachyarrhythmia Current Visit: Yes Status: Acute Assessment and plan: Rate controlled BP within acceptable range continue Metoprolol 12.5mg PO q12h continue to monitor (12) Electrolyte abnormality Current Visit: Yes Status: Acute Assessment and plan: Hypokalemia, Hypophosphatemiea, and Hypomagnesemia K, Phos, Mg supplemented continue to monitor electrolytes and replace as needed - Subjective Interval history: Patient is a 75y/o female who is admitted for sepsis secondary to aspiration pneumonia. Patient seen and examined with family present at bedside. Patient remains lethargic, arousable to tactile stimuli, withdraws to pain but remains somnolent. Reported to have Afib yesterday evening and required one dose of Cardizem 10mg IVP shortly after which patient converted to NSR with rate control. Remains tachypneic despite bipap support. Poor prognosis discussed with patient's family and they are not ready for hospice at this time. - Constitutional Vitals: Temp Pulse Resp BP Pulse Ox 98.4 F 75 26 122/76 92 L 06/18/16 07:02 06/18/16 07:02 06/18/16 07:02 06/18/16 07:02 06/18/16 07:02 General appearance: Present: A&O X 0 (contracted, lethargic ), no acute distress , underweight - Head Head exam: Present: atraumatic, normocephalic - Respiratory Respiratory exam: Present: tachypnea. Absent: respiratory distress, wheezes - Cardiovascular Cardiovascular exam: Present: RRR, +S1, +S2 - GI/Abdominal GI/Abdominal exam: Present: normal bowel sounds, soft. Absent: distended, tenderness - Extremities Exam Extremities exam: Present: warm, radial pulses palpable and symetrical. Absent : calf tenderness, pedal edema Internal Medicine: Result - Labs CBC & Chem 7: 06/18/16 04:30 06/18/16 04:30 Labs: Short CBC 06/18/16 Range/Units 04:30 WBC 13.6 H D (4.3-11.1) K/mcL Hgb 11.3 L (11.5-15.4) g/dL Hct 34.4 L (35.3-44.9) % Plt Count 62 L (140-400) K/mcL Neutrophils # 11.7 H (1.6-8.9) K/mcL BMP 06/18/16 04:30 Sodium 151 H Potassium 2.7 L Chloride 114 H Carbon Dioxide 31 H BUN 14 Creatinine 0.54 L Glucose 104 H Calcium 10.2 - ABG Interpretation ABG results: ABG ABG pH 7.40 pH Units (7.32-7.45) 06/18/16 09:10 ABG pCO2 64 mmHg (35-45) H 06/18/16 09:10 ABG pO2 63 mmHg (85-104) L 06/18/16 09:10 ABG O2 Saturation 92 % (95-98) L 06/18/16 09:10 - Impressions Impressions Chest X-Ray 06/18/16 07:59 IMPRESSION: Interval development of focal airspace in the left mid lung, concerning for pneumonia. Focal airspace disease in the right mid lung appears improved, although comparison is difficult given difference in positioning. Diffuse hazy opacities in a perihilar prominence is suggestive of pulmonary edema. Suspect right effusion as well. D/ / 06/18/2016 08:55:26 Miguel Angel Ayala MD / [email or web address] Interpreting Provider: Miguel Angel Ayala MD Consult Discharge Plan - Plan Referrals: Hernán Edwards MD [Primary Care Provider] - 06/26/16 10:00 am ()
[2016-06-18] MEDS: Budesonide/Formoterol 160/4.5 MDI IH SCH (10:47)
[2016-06-18] MEDS ORDERED: Piperacillin/Tazobactam 3.375 GM in D5% in Water (Mini-Bag+) 100 ML IVPB SCH (16:00)
[2016-06-18] MEDS ORDERED: *HR* LORazepam 2 MG/ML VIAL IVP PRN (17:54)
[2016-06-18] MEDS ORDERED: *HR* Morphine 2 MG/ML SYRINGE IVP PRN (17:56)
--- NOTE | 2016-06-18 17:56 | Event Note ---
Date of Encounter: 06/18/16 Time of Encounter: 17:51 Patient was reported to be desaturating on Bipap support, tachypeneic, tachycardic. FiO2 was increased with increase in pressure support on the bipap. Patient continues to be tachypneic with respiratory rate varying between 30-40, with Tidal volume varying between 150-250. I had a detailed discussion with the entire family including Shalom and Martin Arzate. As per their wishes, patient will be converted to comfort care only. Medication recommendations (Morphine 3mg IV q1h prn SOB/Pain, Ativan 1mg IV q2h prn anxiety/agitation )were obtained from Dr. Bailey who is familiar of the case. Bipap support is to be removed along with tele monitoring. No further lab draws or antibiotic treatment. At this point, patient will be on comfort care measures only. Family and POA expresses understanding and agree with this managment plan.
[2016-06-18] MEDS ORDERED: Vancomycin 750 MG in D5% in Water 250 ML IVPB SCH (18:00)
[2016-06-18 19:57] VITALS: BP 89/47
[2016-06-18] MEDS ORDERED: Aminoglycoside Consult 1 EACH MC ONE (22:06)
--- NOTE | 2016-07-11 10:58 | Death Note ---
Discharge Sum: Summary - Date and Time Date of admission: 06/15/16 03:00 - Additional Data Attending physician: Reema Pacheco MD Discharge Sum: Diag - PCOD Probable Cause of : Respiratory arrest Discharge Sum: Prov - Provider Primary care physician: Hernán Edwards MD Consults: 06/15/16 03:09 Consult to Nutrition [CONS] Routine Comment: Consulting Provider: NUTRITION Reason for Dietary Consult: MST Score PO Supplementation Other:: NEEDING TO RESUME TUBE FEEDS. THANK YOU. 06/15/16 09:42 Consult to Palliative Care [CONS] Stat Comment: Consulting Provider: Palliative Care Nelly 06/15/16 09:43 Consult to Speech Therapy [CONS] Routine Comment: Evaluate, develop and implement POC Reason for Consult: concern for aspiration, s/p G tube and history of dysphagia but patient still takes PO intake Call Completed: Yes 06/15/16 14:00 Consult to Supervisor [employer] [CONS] Routine Reason for SW Consult: PER NIECE POSSIBLE ELDER ABUSE AT HOME 06/16/16 14:47 Consult to Invasive Line Access Team [CONS] Routine Reason for Consult: DIFFICULT TO OBTAIN IV ACCESS Line Type: EPIV
--- NOTE | 2016-07-15 12:04 | Death Note ---
Discharge Sum: Summary - Date and Time Date of admission: 06/15/16 03:00 - Summary Details: Patient was reported to be desaturating on Bipap support, tachypeneic, tachycardic. FiO2 was increased with increase in pressure support on the bipap. Patient continues to be tachypneic with respiratory rate varying between 30-40, with Tidal volume varying between 150-250. I had a detailed discussion with the entire family including Shalom and Martin Arzate. As per their wishes, patient will be converted to comfort care only. Medication recommendations (Morphine 3mg IV q1h prn SOB/Pain, Ativan 1mg IV q2h prn anxiety/agitation )were obtained from Dr. Bailey who is familiar of the case. Bipap support is to be removed along with tele monitoring. No further lab draws or antibiotic treatment. At this point, patient will be on comfort care measures only. Patient overnight - Additional Data Attending physician: Reema Pacheco MD Discharge Sum: Diag - PCOD Probable Cause of : Respiratory arrest Discharge Sum: Prov - Provider Primary care physician: Hernán Edwards MD Consults: 06/15/16 03:09 Consult to Nutrition [CONS] Routine Comment: Consulting Provider: NUTRITION Reason for Dietary Consult: MST Score PO Supplementation Other:: NEEDING TO RESUME TUBE FEEDS. THANK YOU. 06/15/16 09:42 Consult to Palliative Care [CONS] Stat Comment: Consulting Provider: Palliative Care Nelly 06/15/16 09:43 Consult to Speech Therapy [CONS] Routine Comment: Evaluate, develop and implement POC Reason for Consult: concern for aspiration, s/p G tube and history of dysphagia but patient still takes PO intake Call Completed: Yes 06/15/16 14:00 Consult to Maintenance Apprentice [CONS] Routine Reason for SW Consult: PER NIECE POSSIBLE ELDER ABUSE AT HOME 06/16/16 14:47 Consult to Invasive Line Access Team [CONS] Routine Reason for Consult: DIFFICULT TO OBTAIN IV ACCESS Line Type: EPIV
== END 2016-06-18 22:07 | disposition expired | DRG 871 ==
LOC: 2NNU 20:40 → EMEROO 20:40 → 2NNU 06-15 01:14 → MERGE 06-15 03:00
PROVIDERS: ADMIT Internal Medicine; ATTEND Internal Medicine